=== PATIENT | female | born 2005 | race Caucasian/White ===

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

== ENCOUNTER 2023-06-18 10:32 | Emergency (ER) | payer OTHER, SELFPAY ==
[2023-06-18] VITALS (8 sets, daily range): BP systolic 112–134; BP diastolic 71–84; PULSE 66–103; RESP 16; TEMP 36.7; O2SAT 98–100; BMI 20.5
[2023-06-18 10:43] LABS: Microscopic, Urine URINE MICROSCOPIC (MICROSCOPIC)
--- NOTE | 2023-06-18 11:31 | HMH.EDGENADL ---
Discharge Plan Disposition Patient Disposition: Home, Self-Care Condition: Good Prescriptions Prescriptions: No Action sertraline [Zoloft] 50 mg tablet 50 mg PO DAILY ondansetron 4 mg tablet,disintegrating 4 mg PO Q6H PRN (Reason: nausea and vomiting) 3 Days Qty: 12 0RF medroxyprogesterone 150 mg/mL suspension 150 mg IM DIRECTED levofloxacin 500 MG tablet 500 mg PO DAILY Qty: 7 0RF Referrals Follow up/Referrals: Kory Mercedes MD [Primary Care Provider] - See instructions Activity Restrictions/Add. Instructions Additional Instructions/Restrictions: As discussed, it is likely that you had a ruptured ovarian cyst, given the resolution of your symptoms, the subacute onset of your symptoms, and reassuring imaging. Please return to the emergency department if your pain comes back or worsens, or other concerning signs such as nausea, vomiting,, vaginal bleeding, urinary symptoms. Clinical Impressions Clinical Impression: Intermittent right lower quadrant abdominal pain Instructions Patient Instructions: DI for Acute Abdominal Pain Discharge ED Provider: Chandu Pardo Adult HPI General Chief complaint: Abdominal Pain Stated complaint: Rt side abd pain radiating to back Time Seen by Provider: 06/18/23 10:43 Mode of Arrival: Ambulatory Source of Information: Patient Limitations: No Limitations Description of Symptoms (Recalled from ER Triage Doc. by RN): 17 yo F presents to ED with c/o RLQ pain ongoing for 2-3 days. pt reports last night pain began to radiate into her back on right side. pt does have hx of ovarian cysts but never had proper follow up History of Present Illness HPI narrative: Patient presents for evaluation of gradual in onset right lower quadrant pain, intermittent course, described as dull and nonradiating, with no associated nausea or vomiting or vaginal bleeding or urinary symptoms, describes associated chills however no recorded fevers. Symptoms started approximately 2 to 3 days ago, no sick contacts, no recent travel, no diarrhea or constipation. Of note has had history of ovarian cysts but is unsure if symptoms have been consistent with current presentation. No vaginal discharge or bleeding. No abdominal surgical history. Related Data Home Medications Medication Instructions Recorded Confirmed sertraline 50 mg tablet (Zoloft) 50 mg PO DAILY mood 09/13/19 05/19/21 medroxyprogesterone 150 mg/mL 150 mg IM DIRECTED control 11/13/19 05/19/21 intramuscular suspension Previous Rx's Medication Instructions Recorded ondansetron 4 mg disintegrating 4 mg PO Q6H PRN nausea and 11/26/19 tablet vomiting 3 days #12 tabs levofloxacin 500 mg tablet 500 mg PO DAILY #7 tabs 10/25/21 Allergies Allergy/AdvReac Type Severity Reaction Status Date / Time No Known Allergies Allergy Verified 11/26/19 19:06 [facility] Disclaimer: The information contained in this section may have been updated after the patient was seen, as this information can be updated by other users. Social History Smoking Status: Current every day smoker tobacco type: e-cigarettes alcohol intake: never substance use type: denies use current occupational status: other Travel in the last 8 weeks: None household members: family housing: house ROS Obtained: Yes Systems reviewed as appropriate & no additional complaints except as documented Physical Exam General General appearance: alert and in no apparent distress Head Head exam: atraumatic and normocephalic Eye Eye exam: Present normal appearance Neck Neck exam: Present normal inspection Chest Chest inspection: Present normal inspection and symmetric chest wall rise Respiratory Respiratory exam: Present normal lung sounds bilaterally; Absent respiratory distress Cardiovascular Cardiovascular exam: Present regular rate and normal rhythm Abdominal Exam Abdominal exam: Present soft; Absent guarding or
--- NOTE | 2023-06-18 11:32 | CT_ITS ---
PROCEDURE INFORMATION: Exam: CT Abdomen And Pelvis With Contrast Exam date and time: 06/18/2023 12:01 PM Age: 17 years old Clinical indication: Abdominal pain; Flank; Right lower quadrant (rlq); Additional info: Severe rlq pain TECHNIQUE: Imaging protocol: Computed tomography of the abdomen and pelvis with contrast. Radiation optimization: All CT scans at this facility use at least one of these dose optimization techniques: automated exposure control; mA and/or kV adjustment per patient size (includes targeted exams where dose is matched to clinical indication); or iterative reconstruction. Contrast material: ISOVUE; Contrast volume: 75 ml; Contrast route: IV; REPORTING DATA: Count of CT and Cardiac NM exams in prior 12 months: This patient has received 0 known CTs and 0 known cardiac nuclear medicine studies in the 12 months prior to the current study. COMPARISON: CT ABDOMEN PELVIS W CON 10/24/2021 11:40 PM FINDINGS: Lungs: No acute airspace or pleural disease. Liver: No focal hepatic mass. Gallbladder and bile ducts: Contracted gallbladder. Pancreas: No pancreatic mass. Spleen: No splenomegaly. 1.8 cm accessory spleen. Adrenal glands: Unremarkable adrenals. Kidneys and ureters: Normal renal morphology. No hydronephrosis. Stomach and bowel: Mild small bowel dilatation without a transition zone. Prominent stool. Diverticula, without pericolonic inflammation. Appendix: No acute appendicitis. Intraperitoneal space: No significant free fluid. Vasculature: Normal caliber of the abdominal aorta. Lymph nodes: Subcentimeter lymph nodes. Urinary bladder: Normal bladder morphology. Reproductive: Follicular change in the ovaries. Bones/joints: No acute osseous pathology. Soft tissues: Unremarkable. IMPRESSION: 1. No acute inflammatory process in the abdomen or pelvis. 2. Additional findings as described above.
[2023-06-18 11:37] LABS: Appearance,Urine CLEAR (Clear); Blood, Urine 1+ (Negative); Color,Urine YELLOW (Yellow); Glucose,Urine (UA) Negative (Negative); Ketones,Urine 1+ (Negative); Leukocyte Esterase,Urine Negative (Negative); Nitrate,Urine Negative (Negative); Protein,Urine TRACE (Negative); Specific Gravity, Urine >= 1.030 (1.005-1.030); Urobilinogen,Urine 0.2 EU/dl (0.2)
[2023-06-18 11:38] LABS: HCG Qualitative, Serum Negative (Negative)
[2023-06-18 11:39] LABS: Basophils # 0.1 K/mm3 (0-0.2); Basophils % 0.8 % (0.1-2.0); Eosinophils % 0.6 % (0.1-12.0); Hematocrit 45.4 % (37.0-47.0); Hemoglobin 14.6 g/dL (12.2-16.2); Lymphocytes # 0.5 K/mm3 (0.7-4.5); Lymphocytes % 8.1 % (10-50); Mean Corpuscular HGB Conc 32.1 g/dL (31.8-35.4); Mean Corpuscular Hemoglobin 30.2 pg (27.0-31.2); Mean Corpuscular Volume 94.2 fl (81-99); Mean Platelet Volume 8.4 fl (7.4-10.4); Monocytes # 0.4 K/mm3 (0.1-1.0); Monocytes % 7.9 % (1.7-9.3); Neutrophils # 4.6 K/mm3 (1.8-7.8); Neutrophils % 82.6 % (37.0-80.0); Platelet Count 229 K/mm3 (142-424); Red Blood Count 4.82 M/mm3 (4.20-5.40); Red Cell Distribution Width 13.2 % (11.5-17.5); White Blood Count 5.6 K/mm3 (4.5-13.0)
[2023-06-18 11:40] LABS: Alanine Aminotransferase 18 U/L (12-78); Albumin Level 4.5 g/dl (3.5-5.0); Albumin/Globulin Ratio 1.6 (1.1-1.8); Alkaline Phosphatase 67 U/L (38-126); Amylase 49 U/L (30-110); Anion Gap 13.5 mEq/L (5-15); Aspartate Amino Transferase 26 U/L (14-36); Bilirubin,Total 0.8 mg/dl (0.2-1.3); Blood Urea Nitrogen 7 mg/dl (7-17); Carbon Dioxide 27 mmol/L (22.0-30.0); Chloride 98 mmol/L (98-107); Creatinine Clearance Estimated 97 mL/min (50-200); Estimated Glomerular Filt Rate 92 ml/min (>60); GFR (African American) 112 ML/MIN (>60); Globulin 2.8 g/dL (1.3-3.2); Glucose 113 mg/dl (74-100); Lipase 54 U/L (23-300); Potassium 3.5 mmoL/L (3.5-5.1); Sodium 135 mmol/L (136-145); Total Protein,Serum 7.3 g/dl (6.3-8.2)
[2023-06-18 11:56] LABS: Bilirubin,Urine 1+ (Negative)
[2023-06-18 12:30] LABS: Bacteria,Urine Trace /lpf; Squamous Epithelial Cell,Urine 50-100 #/hpf (0-5)
== END 2023-06-18 14:24 | disposition home or self-care (01) ==
PROVIDERS: Emergency Provider Emergency Medicine; PCP Family Medicine
DX: R10.31 Right lower quadrant pain (principal); R68.83 Chills (without fever); F17.290 Nicotine dependence, other tobacco product, uncomplicated
CPT/HCPCS: 74177; 80053; 81001; 82150; 83690; 84703; 85025; 96361; 96374; 99285; Q9967

== ENCOUNTER 2023-12-22 15:30 | Outpatient (CLI) | payer OTHER, SELFPAY ==
--- NOTE | 2023-12-22 15:35 | US_ITS ---
PROCEDURE: US TRANSVAGINAL CLINICAL INDICATION: Irregular Menses COMPARISON: No exams were available for comparison FINDINGS: Transvaginal sonographic images of the pelvis were obtained. UTERUS: 6.2cm x 4.3cmx 3.3cm retroverted with a combined endometrial thickness of 8.3mm. LEFT OVARY: 3.3cmx2.0cmx1.7cm with a volume of 5.7ml. There are multiple follicles within the left ovary. The largest measures 0.75 cm. It had a polycystic appearance. RIGHT OVARY: 4.2cmx 2.3cmx2.3cm with a volume of 11.8ml. There are several small follicles within the right ovary. There is a corpus luteum measuring 2.2 cm x 1.1 cm x 1.7 cm. There is trace fluid around the right ovary likely indicating recent ovulation. Both ovaries are seen and appear normal. Doppler flow to both ovaries are seen. There is no fluid in the cul-de-sac. IMPRESSION: 1. Retroverted uterus normal in shape and size. The endometrium appears normal. 2. Both ovaries are seen and appear normal. The left ovary has a polycystic appearance. The right ovary has evidence of recent ovulation with trace fluid around the ovary. A corpus luteum is seen. 3. No fluid in the cul-de-sac. Dictated by: Justice Rodriguez MD 12/23/2023 12:43 Justice Rodriguez MD in [facility] 12/23/2023 12:43
== END 2023-12-22 23:59 ==
LOC: RAD 15:31
PROVIDERS: PCP Family Medicine; Visit Provider Obstetrics & Gynecology
DX: N92.6 Irregular menstruation, unspecified (principal)
CPT/HCPCS: 76830

== ENCOUNTER 2024-08-22 02:47 | Emergency (ER) | payer SELFPAY ==
[2024-08-22 02:48] VITALS: BP 150/90; PULSE 75; RESP 18; TEMP 36.7; O2SAT 100; BMI 22.6
--- NOTE | 2024-08-22 02:54 | HMH.EDGENADL ---
Discharge Plan Disposition Patient Disposition: Home, Self-Care Prescriptions Prescriptions: No Action sertraline 25 mg tablet 25 mg PO BID Patient Comments: TAKE 1 TABLET BY MOUTH DAILY FOR 1 WEEK THEN INCREASE TO 2 TABS DAILY Referrals Follow up/Referrals: Provider,MD Reji [Primary Care Provider] - See instructions Activity Restrictions/Add. Instructions Additional Instructions/Restrictions: Please follow-up with your primary care provider. Please return to the emergency department if you develop any new or worsening symptoms or become concerned for your health. Consider MiraLAX as needed to have daily soft stools. Clinical Impressions Clinical Impression: Flu-like symptoms, Abdominal pain Instructions Patient Instructions: DI for Diarrhea and Traveler's Diarrhea -- Adult, DI for Diarrhea and Traveler's Diarrhea -- Child, DI for Nausea -- Adult, DI for Nausea -- Child Print Language Print Language: Yoruba Discharge ED Provider: Artie Choi General Adult HPI General Chief complaint: Nausea/Vomiting/Diarrhea Stated complaint: abd pain, chills, dizziness, body aches Time Seen by Provider: 08/22/24 02:53 History of Present Illness HPI narrative: 19-year-old female with history of anxiety and depression, irregular periods presents for multiple complaints. She reports that she has had cough, congestion, body aches, muscle aches, chills at home for the last several days. She also reports she has been having intermittent left lower quadrant abdominal pain. She reports her last menstrual period was last month. Reports she does not think she is . Reports that her urine is darker and has an odor. Denies dysuria, denies flank pain. Reports he has not been pooping as regularly as normal. Related Data Home Medications ?Medication ?Instructions ?Recorded ?Confirmed sertraline 25 mg tablet 25 mg PO BID 12/12/23 12/12/23 Allergies Allergy/AdvReac Type Severity Reaction Status Date / Time No Known Allergies Allergy Verified 12/12/23 12:57 [facility] Disclaimer: The information contained in this section may have been updated after the patient was seen, as this information can be updated by other users. Medical History (Updated 08/22/24 @ 03:33 by Artie Choi MD) Patient desires Irregular periods/menstrual cycles Ovarian cyst Bipolar 1 disorder, depressed Anxiety and depression Surgical History (Updated 12/12/23 @ 13:05 by JEANE Mcfadden) No significant past surgical history Family History (Updated 12/12/23 @ 13:06 by JEANE Mcfadden) Grandfather Cancer Other Diabetes FHx: mental illness Hypertension Substance abuse Social History (Updated 12/12/23 @ 13:06 by JEANE Mcfadden) Smoking Status: Current every day smoker tobacco type: cigarettes alcohol intake: never substance use type: marijuana current occupational status: unemployed Travel in the last 8 weeks: None household members: family housing: house Other Medical History Have you received the Flu Vaccine for this season: No Have you received the Pneumonia Vaccine: No ROS Obtained: Yes All systems reviewed & no additional complaints except as documented Physical Exam General General appearance: alert and in no apparent distress Head Head exam: atraumatic and normocephalic Eye Eye exam: Present normal appearance, PERRL and EOMI ENT ENT exam: Present normal oropharynx and normal external ear exam Neck Neck exam: Present normal inspection and full ROM Chest Chest inspection: Present normal inspection and symmetric chest wall rise; Absent tenderness Respiratory Respiratory exam: Present normal lung sounds bilaterally; Absent respiratory distress Cardiovascular Cardiovascular exam: Present regular rate and normal rhythm Abdominal Exam Abdominal exam: Present soft and tenderness (Minimal left lower quadrant); Absent distention or guarding Extremities Exam Extremities exam: Present normal inspection; Absent edema or joint swelling Back Exam Back exam: Present normal inspection; Absent tenderness Neurological Exam Neurological exam: Present alert and oriented X3; Absent motor sensory deficit Psychiatric Psychiatric exam: Present normal affect and normal mood Skin Skin exam: Present warm, dry and normal color Lymphatic Lymphatic Findings: no adenopathy Medical Decision Making Medical Records Medical records reviewed: Yes I reviewed the patient's medical records. Screening: Per USPSTF and CDC recommendations, given the prevalence of disease in our region, it is our hospital?s policy to screen for HIV and viral Hepatitis for all patients aged 18 and over and those with ongoing risk factors. Hasmukh Inquiry Pt receiving controlled substance: No Hasmukh was queried for this patient: No Vital Signs: 08/22/24 02:48 Temperature 98.0 F Temperature Source Oral Pulse Rate [Left Radial] 75 Respiratory Rate 18 Blood Pressure [Right Arm] 150/90 H Blood Pressure Mean [Right Arm] 110 Blood Pressure Source [Right Arm] Automatic Cuff Blood Pressure Position [Right Arm] Sitting 02 Sat by Pulse Oximetry 100 Oxygen Delivery Method Room Air Lab Data Lab results reviewed: Yes I reviewed the patient's lab results. Lab Results 08/22/24 02:59: SARS-CoV-2 (PCR) Not detected, Influenza A Untype (PCR) Not detected, Influenza Type B (PCR) Not detected 08/22/24 03:05: Urine Color Yellow, Urine Appearance Clear, Urine pH 6.0, Ur Specific [place] >= 1.030, Urine Protein Negative, Urine Glucose (UA) Negative, Urine Ketones Trace, Urine Blood Negative, Urine Nitrate Negative, Urine Bilirubin Negative, Urine Urobilinogen 1.0, Ur Leukocyte Esterase Negative, Urine RBC None, Urine WBC Occasional, Ur Squamous Epith Cells 3-5, Urine Bacteria Trace, Urine HCG, Qual Negative Orders (Tests/Meds): ORDERS Category Date Time Status Rapid PCR Covid and Flu A/B Stat Lab 08/22/24 02:59 Completed UA [Urinalysis and Microscopic] Stat Lab 08/22/24 03:05 Completed Urine , HCG Qual. Stat Lab 08/22/24 03:05 Completed Medical Decision Narrative: 19-year-old female with history of depression, irregular menstruation presents for multiple complaints, flulike illness as well as intermittent left lower quadrant abdominal pain.. History was obtained via interactive discussion with patient. On arrival, patient is [afebrile, hemodynamically stable, satting appropriately, alert, oriented x4, GCS 15], moving all extremities spontaneously. Full physical exam performed and significant for minimal left lower quadrant tenderness, clear lungs bilaterally. Differential includes but is not limited to COVID, flu, URI, UTI, constipation, , pyelo-, ovarian cyst, ectopic . Workup initiated including urinalysis, urine , COVID flu. On re-evaluation, patient [remains afebrile, HD stable.] Laboratory workup independently interpreted by me and significant for urinalysis not consistent with infection, urine negative. Negative COVID flu Blood work, transvaginal ultrasound was considered, but deemed unnecessary due to history and exam. Given patient history, exam and workup, patient's presentation most likely represents acute viral infection. Patient's left lower quadrant pain does not appear consistent with torsion or other emergent pathology, could be related to constipation. Patient was discharged in stable condition with return precautions and instructions regarding symptomatic care.. Procedures Risk/Benefits of Procedure(s) Were Explained: Yes Critical Care Critical Care Time Critical Care Time: No
[2024-08-22 03:03] LABS: Coronavirus 19, PCR Not Detected (NotDetected); Influenza A, PCR Not Detected (NotDetected); Influenza B, PCR Not Detected (NotDetected)
[2024-08-22 03:09] LABS: Appearance,Urine CLEAR (Clear); Bilirubin,Urine Negative (Negative); Blood, Urine Negative (Negative); Color,Urine YELLOW (Yellow); Glucose,Urine (UA) Negative (Negative); Ketones,Urine TRACE (Negative); Leukocyte Esterase,Urine Negative (Negative); Microscopic, Urine URINE MICROSCOPIC (MICROSCOPIC); Nitrate,Urine Negative (Negative); Protein,Urine Negative (Negative); Specific Gravity, Urine >= 1.030 (1.005-1.030)
[2024-08-22 03:11] LABS: Urine Pregnancy, HCG Qual. Negative (Negative)
[2024-08-22 03:21] LABS: Bacteria,Urine Trace /lpf; WBC,Urine Occasional #/hpf (0-3)
[2024-08-22 03:41] VITALS: BP 150/90; PULSE 75; RESP 18; TEMP 36.7; O2SAT 100
== END 2024-08-22 03:42 | disposition home or self-care (01) ==
PROVIDERS: Emergency Provider Emergency Medicine
DX: R68.89 Other general symptoms and signs (principal); R05.9 Cough, unspecified; R09.81 Nasal congestion; M79.10 Myalgia, unspecified site; R68.83 Chills (without fever); R10.32 Left lower quadrant pain
CPT/HCPCS: 81001; 81025; 87636; 99283

== ENCOUNTER 2025-03-08 17:46 | Emergency (ER) | payer OTHER, SELFPAY ==
--- OUTSIDE RECORDS SUMMARY | 2024-01-20 10:45 | XMS_ITS ---
Author Organization [facility] Address [address] [place] [id number] Care Team Providers Care [employer] Operator Name Role Phone Everette French Primary Care Provider John Worthy Unavailable [phone] Rosaura Hassan Unavailable [phone] Allergies No Known Allergies REASON FOR VISIT Follow Up on Medication Medications Medication SIG (Take, Route, Fr equency, Duration) Notes Start Date End Date Status Sertraline HCl 50 MG 1 tablet Orally Onc e a day for 90 days Active Vraylar 1.5 MG 1 capsule Orally Onc e a day for 90 days Active Vital Signs Blood pressure systolic 118 mm Hg 01/20/20 24 Blood pressure diastolic 74 mm Hg 024 Heart Rate 78 /min 01/20/2024 Height 61 in 01/20/2024 Weight 110.8 lbs 01/20/2024 BMI 20.93 kg/m2 01/20/2024 Encounters Encounter Location Date Provider Diagnosis [facility] [address] [place] [phone] 01/20/2024 Rosaura Hassan Depression with anxi ety F41.8 Assessments Encounter Date Diagnosis (ICD Code) Assessment Notes Treatment Notes Treatment Clinical Notes Section Notes 01/20/2024 Depression with anxiety (ICD-10 - F41.8) Plan Of Treatment Medication Medication Name Sig Start Date Stop Date Notes Sertraline HCl 50 MG 1 tablet Orally Onc e a day for 90 days Vraylar 1.5 MG 1 capsule Orally Onc e a day for 90 days Next Appt Details Follow Up: 6 Months, Reason: Progress Notes * TRENT WILLOUGHBY MDOB:[birth year] (19 yo F)Acc No.[id number]:01/20/2024 Progress Notes Patient: TRENT ROLAND Provider: PORTIA Chau :2005 A ge:18 Y S ex:Female Date:01/20/2024 Phone: Address:[address] [place] [address] [place] [phone] Pcp:Everette French Subjective: * Chief Complaints: * 1 . Follow Up on Medication. * HPI: H PI: 18 year old female presents with c/o Here for follow up on:?medication. pt states no issues at this time and is tolerating well. * ROS: D ERMATOLOGY: no R su. n o H stephanie. G ASTROENTEROLOGY: no N ausea. n o V omiting. U ROLOGY: no D ifficulty urinating. n o B lood in urine. * Medical History: M edical History Verified. * Surgical History: T onsillectomy, Adenoidectomy- [facility] . * Hospitalization/Major Diagno stic Procedure: S ore Throat- [facility] . * Family History: F ather: alive 53 yrs, diagnosed with Mental Illness. M other: alive 44 yrs, diagnosed with Mental Illness. P aternal Grand Father: alive 73 yrs. P aternal Grand Mother: alive 71 yrs, diagnosed with Diabetes. M aternal Grand Father: alive. M aternal Grand Mother: .?Siblings: alive, diagnosed with Cancer. 3 brother(s) , 5 sister(s) - healthy. . * Social History: C URRENT TOBACCO USE: Yes . C affeine: yes, frequency:sometimes. Exercise: no. Home smoke detector use: yes. Marital Status: Single. Occupation: employed, [employer]. Recreational drug use: no. Alcohol: no. Sexually active: yes. Travel ouside [place]: no. Lives with Grandmother who is her guardian. * Medications: T aking Sertraline HCl 50 MG Tablet 1 tablet Orally Once a day , Taking Vraylar 1.5 MG Capsule 1 capsule Orally Once a day , Medication List reviewed and reconciled with the patient * Allergies: N .K.D.A. Objective: * Vitals: W t:110.8, Temp:98.6, BP:118/74, HR:78, Nurse:mh, Ht: 61, BMI:20.93. * Examination: P sychology: General Appearance: N AD. Grooming : a dequate. Eye contact : n ormal. Mood : p leasant. Heart: R SR. Lungs: c lear to auscultation. Neurologic Exam: I ntact, gait normal. ? Assessment: * Assessment: 1. D epression with anxiety - F41.8 (Primary) Plan: * Treatment: * Follow Up: 6 Months * Billing Information: * Visit Code: 69130 Office Visit, Est Pt., Level 3. * Procedure Codes: * Electronic signature of PORTIA Oneal on 03/08/2025 at 06:11 PM EDT Sign off status: Pending * Provider: PORTIA Chau Date: 0 01/20/2024 Generated for Printi ng/Faxing/eTransmitting on: 0 03/08/2025 06:11 PM EDT History and Physical Notes * HPI (History of Present Illness) Category Sub-Category Detail Notes Category Not es HPI Here for follow up on: medicatio n. pt states no issues at this time and is tolerating well Examination Category Sub-Category Detail Notes Category Not es Psychology Heart: RSR Lungs: clear to auscultatio n General Appearance: NAD Neurologic Exam: Intact, gait normal Grooming : adequate Eye contact : normal Mood : pleasant
--- OUTSIDE RECORDS SUMMARY | 2024-04-13 09:40 | XMS_ITS ---
Author Organization [facility] Address [address] [place] [address] [place] [id number] Care Team Providers Care General Merchandise Salesperson Name Role Phone Everette French Primary Care Provider John Worthy Unavailable [phone] Rosaura Hassan Unavailable [phone] Allergies No Known Allergies REASON FOR VISIT Check Up Encounters Encounter Location Date Provider Diagnosis Kavon [address] [place] [address] [place] [id number] 04/13/2024 Rosaura Hassan Plan Of Treatment No Information Progress Notes * TRENT WILLOUGHBY MDOB:[birth year] (19 yo F)Acc No.[id number]:04/13/2024 Progress Notes Patient: TRENT ROLAND Provider: PORTIA Chau :2005 A ge:18 Y S ex:Female Date:04/13/2024 Phone: Address:[address] [place] [address] [id number] Pcp:Everette French Subjective: * Chief Complaints: * 1 . Check Up. * ROS: D ERMATOLOGY: no R su. n o H stephanie. G ASTROENTEROLOGY: no N ausea. n o V omiting. U ROLOGY: no D ifficulty urinating. n o B lood in urine. * Medical History: M edical History Verified. * Surgical History: T onsillectomy, Adenoidectomy- [facility] . * Hospitalization/Major Diagno stic Procedure: S [facility] . * Family History: F ather: alive [...] * Vitals: Assessment: Plan: * Treatment: * Billing Information: * Visit Code: * Procedure Codes: * Electronic signature of PORTIA Oneal on 03/08/2025 at 06:11 PM EDT Sign off status: Pending * Provider: PORTIA Chau Date: 0 04/13/2024 Generated for Keegan rahman/Tanya/Alexandru on: 03/08/2025 06:11 PM EDT
--- OUTSIDE RECORDS SUMMARY | 2024-05-24 11:45 | XMS_ITS ---
Author Organization [facility] Address [address] [place] [id number] Care Team Providers Care Caul Fat Puller Name Role Phone Everette French Primary Care Provider [phone] John Worthy Unavailable [phone] Sonya Rosaura Unavailable [phone] Allergies No Known Allergies Results Component Value [...] Interpretation: Performing Lab: Notes/Report: Test performed by [facility] [address] [place] [address] , [address], [place] [address] Hoang Santana MD, Lapeler CLIA: [id number] Amylase 36 28-100 U/L P-Comprehensive Metabolic Pa joel (CMP) Reviewed date:05/25/2024 09:49:41 AM Interpretation: Performing Lab: Notes/Report: Test performed by [facility] [address] [place] [address] , [address], [place] [address] Hoang Santana MD, Lapeler CLIA: [id number] Sodium 139 135-145 mmol/L Potassium 3.7 3.5-5.3 [...] growth Performing Lab: Notes/Report: Test performed by [facility] [address] [place] [address] , [address], [place] [address] Hoang Santana MD, Lapeler CLIA: [id number] Specimen Source Urine - Void Culture, Urine See Below Final Report : No growth P-Lipase Reviewed date:05/25/2024 09:49:41 AM Interpretation: Performing Lab: Notes/Report: Test performed by [facility] [address] [place] [address] Chrissy [address]ine[address], [address], [place] [address] Hoang Santana MD, Lapeler CLIA: [id number] Lipase 21.3 13.0-60.0 u/L REASON FOR VISIT uti Medications Medication SIG (Take, Route, Fr equency, Duration) Notes Start Date End Date Status Sertraline HCl 50 MG 1 tablet Orally Onc e a day for 90 days Active Vraylar 1.5 MG 1 capsule Orally Onc e a day for 90 days Active levoFLOXacin 500 MG 1 tablet Orally Once a day for 10 day(s) 05/24/2024 Active Vital Signs Blood pressure systolic 126 mm Hg 05/24/20 24 Blood pressure diastolic 70 mm Hg 024 Heart Rate 96 /min 05/24/2024 Height 61 in 05/24/2024 Weight 133.6 lbs 05/24/2024 BMI 25.24 kg/m2 05/24/2024 Encounters Encounter Location Date Provider Diagnosis [facility] [address] [facility] [address] [facility] [address] [place] [id number] 05/24/2024 Rosaura Hassan Hematuria, unspecifi ed type [...] 500 MG 1 tablet Orally Once a day for 10 day(s) 05/24/2024 Pending Test Test Name Order Date Ultrasound : Right Upper Quadrant 2023 Next Appt Details Follow Up: via phone to repo rt test results, Reason: Progress Notes * TRENT WILLOUGHBY MDOB:[birth year] (19 yo F)Acc No.[id number]:05/24/2024 Progress Notes Patient: TRENT ROLAND Provider: PORTIA Chau :2005 A ge:18 Y S ex:Female Date:05/24/2024 Phone: Address:[address] [place] [address] [phone] Pcp:Everette French Subjective: * Chief [...] Verified. * Surgical History: T onsillectomy, Adenoidectomy- [facility] . * Hospitalization/Major Diagno stic Procedure: S ore Throat- [facility] . * Family History: F [...] G eneral Examination: General Appearance: N AD. Chest: n ormal shape and expansion. Heart: R SR. Lungs: c lear to auscultation. Abdomen: bowel sounds present, soft, ttp in the [...] AM > no auth required; CPT code 05949; faxed to scheduling * Procedure Codes: 8 5025 CBC WITH AUTO DIFF, 44049 VENIPUNCT, ROUTINE*, 22430 Urinalysis, no micro * Follow Up: v ia phone to report test results * Billing Information: * Visit Code: 57634 Office Visit, Est Pt., Level 3. * Procedure Codes: 32310 CBC WITH AUTO DIFF. 72412 VENIPUNCT, ROUTINE*. [address]6811 Urinalysis, no micro. * Electronic signature of PORTIA Oneal on 03/08/2025 at 06:11 PM EDT Sign off status: Pending * Provider: PORTIA Chau Date: 0 05/24/2024 Generated for Keegan rahman/Tanya/Alexandru on: 0 03/08/2025 06:11 PM EDT History [...]
--- OUTSIDE RECORDS SUMMARY | 2025-03-08 18:11 | XMS_ITS | Patient Health Record ---
[facility] Address [address] [place] [id number] Care Team Providers Care Cork Insulator Helper Name Role Phone Everette French Primary Care Provider John Worthy Unavailable [phone] JosueRosaura mauricio Unavailable [phone] Allergies No Known Allergies Results Component Value [...] Interpretation: Performing Lab: Notes/Report: Test performed by [email or web address] [employer] [address] [place] [address] , [address], [place] [address] Hoang Santana MD, Cocktail Lounge Manager CLIA: [id number] Amylase 36 28-100 U/L P-Comprehensive Metabolic Pa joel (CMP) Reviewed date:05/25/2024 09:49:41 AM Interpretation: Performing Lab: Notes/Report: Test performed by [facility] [address] [place] [address] , [address], [place] [address] Hoang Santana MD, Cocktail Lounge Manager CLIA: [id number] Sodium 139 135-145 mmol/L Potassium 3.7 3.5-5.3 [...] growth Performing Lab: Notes/Report: Test performed by [facility] [address] [place] [address] , [address], [place] [address] Hoang Santana MD, Cocktail Lounge Manager CLIA: [id number] Specimen Source Urine - Void Culture, Urine See Below Final Report : No growth P-Lipase Reviewed date:05/25/2024 09:49:41 AM Interpretation: Performing Lab: Notes/Report: Test performed by [facility] [address] [place] [address] , [address], [place] [address] Hoang Santana MD, Cocktail Lounge Manager CLIA: [id number] Lipase 21.3 13.0-60.0 u/L Medications Medication SIG (Take, Route, Fr equency, Duration) Notes Start Date End Date Status Sertraline HCl 50 MG 1 tablet Orally Onc e a day for 90 days Active Vraylar 1.5 MG 1 capsule Orally Onc e a day for 90 days Active levoFLOXacin 500 MG 1 tablet Orally Once a day for 10 day(s) 05/24/2024 Active Immunizations Vaccine Route Administration Date Status Comme nts xFluzone High Dose-private (65yr&older) IM Intramuscular 07/17/2013 Administered xFlumist (intranasally age 2yr-49yr)-trivalent IN intranasal 08/12/2009 Administered xFlu shot-36 months and older IM Intramuscular 09/04/2010 Administered Varivax SC Subcutaneous 10/27/2007 Administered Tetanus Tdap-Adacel (over 7yrs) IM Intramuscular 05/06/2015 Administered Tetanus Dtap-Daptacel (under 7yrs) IM Intramuscular 10/27/2007 Administered MMR SC Subcutaneous 11/03/2007 Administered Menactra IM Intramuscular 05/09/2015 Administered Menactra IM Intramuscular 09/05/2020 Administered IPV IM Intramuscular 11/03/2007 Administered Hep A- Pediatric IM Intramuscular 05/06/2015 Administered Hep A- Pediatric IM Intramuscular 11/18/2017 Administered H1N1 flu vaccine IM Intramuscular 08/20/2009 Administered Gardasil 9 IM Intramuscular 05/06/2015 Administered Gardasil 9 IM Intramuscular 07/16/2015 Administered Gardasil 9 IM Intramuscular 11/13/2015 Administered Fluzone Quad (6months&older) IM Intramuscular 09/05/2020 Administered Problems Problem Type SNOMED Code ICD Code Onset Dates Problem Status W/U Status Risk Notes Problem ROUTINE WELL CHI LD EXAMINATION (V20.2) Active confirmed Problem 33788890 Strep pharyngiti s (J02.0) Active confirmed Problem 633578492 Depression with anxiety (F41.8) Active confirmed Problem 53372319 Irregular period s (N92.6) Active confirmed Problem 869580850 Menorrhagia with irregular cycle (N92.1) Active confirmed Problem 84147125 Bronchitis (J40) Active confirmed Problem 70948070 Acute nasopharyngitis (common cold) (J00) Active confirmed Problem 07548543 Non-intractable vomiting with nausea, unspecified vomiting type (R11.2) Active confirmed Problem 20550972 Missed period (N92.6) Active confirmed Problem 655797662 Aortic heart mur mur (I35.8) Active confirmed Problem 26848676 Diarrhea of presumed infectious origin (R19.7) Active confirmed Problem 11253174 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) Active confirmed Vital Signs Heart Rate 96 /min 05/24/2024 Blood pressure diastolic 70 mm Hg 05/24/2024 Height 61 in 05/24/2024 Blood pressure systolic 126 mm Hg 05/24/2024 Weight 133.6 lbs 05/24/2024 BMI 25.24 kg/m2 05/24/2024 Encounters Encounter Location Date Provider Diagnosis Earnest [address] [facility] [address] [place] [id number] 05/24/2024 Rosaura Crowluly Hematuria, unspecifi ed type R31.9 and Right upper quadrant pain R10.11 [facility] [address] [facility] [address] [place] [id number] 05/25/2024 Rosaura Crowdy [facility] [address] [facility] [address] [facility] [address] [place] [id number] 12/11/2024 Everette French Assessments Encounter Date Diagnosis (ICD Code) Assessment Notes Treatment Notes Treatment Clinical Notes Section Notes 05/24/2024 Right upper quadrant pain (ICD-10 - R10.11) 05/24/2024 Hematuria, unspecified type (ICD-10 - R31.9) Plan Of Treatment Pending Test Test Name Order Date Ultrasound : Right Upper Quadrant 2023 ultrasound : thyroid 07/01/2021 Insurance Providers Payer Name Payer Address Payer Phone Subscriber Number Group Number Insured Name Patient Relationship to Insured Coverage Start Date Coverage End Date AETNA [facility] [id number] [place], [place] [id number] TRENT WILLOUGHBY Self - patient is the insured Medications Administered Medication Instructions Date of Administration Dosage Notes Bicillin LA 1,200,000 08/12/2016 2 mL depo provera 11/03/2019 1 mL depo provera 02/05/2020 1 mL depo provera 05/07/2020 1 mL Dexamethasone 08/12/2016 1 mL Medical (General) History Surgical History Surgery Date(Month/Year) Tonsillectomy, Adenoidectomy- [facility] Hospitalization History Reason Date(Month/Year) Sore Throat- [facility]
--- OUTSIDE RECORDS SUMMARY | 2025-03-08 18:11 | XMS_ITS | Clinical Summary ---
Author Organization [facility] Address [address] [place] [address] Care Team Providers Care Hogshead Liner Name Role Phone Quincy Mercedes MD Primary Care Provider [phone] Family History Medical History Relation Name Comments Drug abuse Other 1 Bipolar disorder Other 2 Relation Name Status Comments Other 1 Other 2 Social History Tobacco Use Types Packs/Day Years Used Date Smoking Tobacco: Never Assessed Comments Unknown Sex and Gender Information Value Date Recorded Sex Assigned at Not on file Legal Sex Female 8:22 PM EDT Gender Identity Not on file Sexual Orientation Not on file Last Filed Vital Signs Vital Sign Reading Time Taken Comments Blood Pressure - - Pulse - - Temperature - - Respiratory Rate - - Oxygen Saturation - - Inhaled Oxygen Concentration - - Weight 56.3 kg (124 lb 0.1 oz) 03/03/2016 3:30 P M EDT Height 152.4 cm (5') 03/03/2016 3:30 PM EDT Body Mass Index 24.22 03/03/2016 3:30 PM EDT Plan of Treatment Health Maintenance Due Date Last Done Comments [facility]-Depression Screening 2003 [facility]-Infant/Child/Adol SDOH Screenings 2003 [facility]-IPV Vaccines (2 of 3 - 4-dose series) 12/01/2007 11/03/2007 [facility]-Varicella Vaccines (2 of 2 - 2-dose childhood series) 01/19/2008 10/27/2007 [facility]-Hepatitis A Vaccines (2 of 2 - 2-dose series) 05/18/2018 11/18/2017 HPV Vaccines (1 - 3-dose series) 2018 [facility]- SDOH Screenings 2021 [facility]-Adult SDOH Screenings 2021 [facility]-DTaP,Tdap,and Td Vaccines (1 - Tdap) 2022 [facility]-Hepatitis B Vaccines (1 of 3 - 19+ 3-dose series) 2022 QEX-AILKL-20 Vaccine (1 - 2023- season) 2024 [facility]-Pap Smear 2024 [facility]-Influenza Vaccine (Season Ended) 2025 09/05/2020, 09/01/2007 [facility]-Zoster Vaccines (1 of 2) 2053 10/27/2007 [facility]-HIB Vaccines Aged Out No longer e ligible based on patient's age to complete this topic [facility]-Pneumococcal Vaccine: Pediatrics (0 to 5 Years) and At-Risk Patients (6 to 49 Years) Aged Out No longer eligible b ased on patient's age to complete this topic [facility]-Rotavirus Vaccines Aged Out No lo nger eligible based on patient's age to complete this topic Insurance [employer] MEDICAID [employer] Care Teams Hogshead Liner Relationship Specialty Start Date End Date Quincy Mercedes MD [address] [place] [address] PCP - General 02/13/21
[2025-03-08 18:16] VITALS: BP 138/94; PULSE 106; O2SAT 100
[2025-03-08 18:28] VITALS: BP 138/94; PULSE 100; RESP 19; TEMP 37; O2SAT 100; BMI 25.7
[2025-03-08 18:37] LABS: Microscopic, Urine URINE MICROSCOPIC (MICROSCOPIC)
--- NOTE | 2025-03-08 18:40 | HMH.EDGENADL ---
Discharge Plan Disposition Patient Disposition: Home, Self-Care Prescriptions Prescriptions: No Action sertraline 25 mg tablet 25 mg PO BID Patient Comments: TAKE 1 TABLET BY MOUTH DAILY FOR 1 WEEK THEN INCREASE TO 2 TABS DAILY Referrals Follow up/Referrals: Rosaura Hassan PA [Primary Care Provider, Medical] - See instructions Activity Restrictions/Add. Instructions Additional Instructions/Restrictions: There remains diagnostic uncertainty right now your urinalysis was not consistent with a infection but she did have a small amount of blood in your urine therefore CT scan was ordered to rule out a kidney stone I do not see any on my personal interpretation but the radiologist has not yet read it. Please follow-up later this evening with your CT results given the fact that she wanted to leave before the results were completed. Otherwise you may follow-up with your primary care doctor and return to the emergency department any significant worsening of your symptoms. Clinical Impressions Clinical Impression: Acute right flank pain, Hematuria Instructions Patient Instructions: DI for Acute Abdominal Pain Print Language Print Language: South African Discharge ED Provider: Tom Londono General Adult HPI General Chief complaint: Abdominal Pain Stated complaint: pain in rt side, pain when urinating Time Seen by Provider: 03/08/25 18:23 Mode of Arrival: Ambulatory Source of Information: Patient Description of Symptoms (Recalled from ER Triage Doc. by RN): pt presents to ED with c/o right sided abdominal pain ongoing for 1 week. poision indra ongoing for the past few days. History of Present Illness HPI narrative: 19-year-old presented today with dysuria and intermittent right flank pain for the last few days. No significant anterior abdominal pain. Also states she has had some poison indra but that is not her main complaint today. Denies any hematuria denies any fevers or chills. Related Data Home Medications ?Medication ?Instructions ?Recorded ?Confirmed sertraline 25 mg tablet 25 mg PO BID 12/12/23 12/12/23 Allergies Allergy/AdvReac Type Severity Reaction Status Date / Time No Known Allergies Allergy Verified 12/12/23 12:57 [facility] Disclaimer: The information contained in this section may have been updated after the patient was seen, as this information can be updated by other users. Medical History (Updated 03/08/25 @ 19:32 by Tom Londono MD) Patient desires Irregular periods/menstrual cycles Ovarian cyst Bipolar 1 disorder, depressed Anxiety and depression Surgical History (Updated 12/12/23 @ 13:05 by JEANE Mcfadden) No significant past surgical history Family History (Updated 12/12/23 @ 13:06 by JEANE Mcfadden) Grandfather Cancer Other Diabetes FHx: mental illness Hypertension Substance abuse Social History (Updated 12/12/23 @ 13:06 by JEANE Mcfadden) Smoking Status: Current every day smoker tobacco type: cigarettes alcohol intake: never substance use type: marijuana current occupational status: unemployed Travel in the last 8 weeks?: None household members: family housing: house Have you lived/traveled outside US in past 30 days?: No Contact w/someone who lives/traveled outside US past 30 days?: No Exposure to someone with infectious disease in past 14 days?: No Do you have a fever (greater than 100.4 F or 38 C)?: No Have you tested positive for COVID-19?: No Exposed to someone with COVID-19 in past 14 days?: No Do you have a sore throat?: No Do you have a cough?: No Do you have any weakness?: No Do you have any diarrhea?: No Are you experiencing any unusual bleeding?: No Do you have any muscle aches/pain?: No Do you have any abdominal pain?: No Are you experiencing loss of taste or smell?: No Other Medical History Have you received the Flu Vaccine for this season: No Have you received the Pneumonia Vaccine: No ROS Obtained: Yes All systems reviewed & no additional complaints except as documented Physical Exam General General appearance: alert Respiratory Respiratory exam: Present normal lung sounds bilaterally Cardiovascular Cardiovascular exam: Present regular rate Abdominal Exam Abdominal exam: Present soft; Absent distention or tenderness Back Exam Back exam: Present CVA tenderness (R) Neurological Exam Neurological exam: Present alert and oriented X3 Medical Decision Making Medical Records Screening: Per USPSTF and CDC recommendations, given the prevalence of disease in our region, it is our hospital?s policy to screen for HIV and viral Hepatitis for all patients aged 18 and over and those with ongoing risk factors. Hasmukh Inquiry Pt receiving controlled substance: No Vital Signs: 03/08/25 18:16 03/08/25 18:28 Temperature 98.6 F Temperature Source Oral Pulse Rate 106 H Pulse Rate [Left Radial] 100 H Respiratory Rate 19 Blood Pressure 138/94 H Blood Pressure [Right Arm] 138/94 H Blood Pressure Mean [Right Arm] 108 02 Sat by Pulse Oximetry 100 100 Lab Data Lab results reviewed: Yes I reviewed the patient's lab results. Lab Results 03/08/25 18:15: Urine Color Yellow, Urine Appearance Slightly cloudy, Urine pH 7.5, Ur Specific [place] 1.015, Urine Protein Negative, Urine Glucose (UA) Negative, Urine Ketones Negative, Urine Blood 1+ A, Urine Nitrate Negative, Urine Bilirubin Negative, Urine Urobilinogen 0.2, Ur Leukocyte Esterase Negative, Urine RBC 3-5, Urine WBC 5-10, Ur Squamous Epith Cells 5-10, Amorphous Sediment 3+, Urine Bacteria Trace, Urine HCG, Qual Negative Orders (Tests/Meds): ORDERS Category Date Time Status CT abdomen pelvis wo con Stat Cat Scan 03/08/25 18:57 Taken POCUS Point of Care (ER Only) Stat Exams 03/08/25 18:34 Ordered HIV Combo Stat Lab 03/08/25 18:24 Received Hepatitis C Ab Qual. W/ RFX Stat Lab 03/08/25 18:24 Received UA [Urinalysis and Microscopic] Stat Lab 03/08/25 18:15 Completed Urine , HCG Qual. Stat Lab 03/08/25 18:15 Completed Medical Decision Narrative: 19-year-old with intermittent right flank pain who has CVA tenderness and some dysuria bleeding on the differential would be pyelonephritis. Bedside ultrasound did not demonstrate any hepatobiliary abnormalities nor any obvious hydronephrosis. Will hold off on CT imaging and radiation exposure at this point. Her abdominal exam is benign at the moment. Will get a urinalysis and reassess shortly. Reassessment 733 patient remains very stable urinalysis was performed which did not demonstrate any kidney infection however there was mild hematuria therefore CT scan was ordered to rule out any intra-abdominal pathology namely a kidney stone. On my personal interpretation of this I do not see any obvious kidney stone hydronephrosis or any alternative explanation. Radiology read is pending. Patient states that she wanted to smoke and also could take care of her animals outside and wanted to leave prior to the results being completed. She understands that there is diagnostic uncertainty. There is a significant amount of stool in her ascending colon which could be contributory and I did explain this to her. I advised that she follow-up on her CT results also she may call later this evening and she is understanding of the uncertainty at the moment and still wants to leave prior to results being completed by radiology. Patient was discharged in stable condition serial abdominal exams are benign. Procedures Miscellaneous Procedure Procedure Performed: Limited RUQ ultrasound Indication: Abdominal pain Identified structures: -Gallbladder -Gallbladder wall -Common bile duct -Liver Findings: Negative sonographic Mendez's no evidence of any gallstones or sludge no significant pericholecystic fluid anterior gallbladder wall normal common bile duct visualized and within normal limits Impression: Normal gallbladder and common bile duct Images were saved to permanent archive The study was technically adequate CPT 93155-79 This study was performed by me, and I personally interpreted all images/videos. Based on my clinical judgement, these images were adequate and did not necessitate further imaging. Limited renal ultrasound Indication: A focused ultrasound of the kidneys was performed to evaluate for hydronephrosis and nephrolithiasis. The ultrasound was performed with the following indications, as noted in the H&P: Flank pain Identified structures: Right kidney Findings: Normal no evidence of hydronephrosis or obvious calculi Impression: Unremarkable ultrasound of the right kidney Images were to permanent archive The study was technically adequate CPT: 13461-01 This study was performed by me, and I personally interpreted all images/videos. Based on my clinical judgement, these images were adequate and did not necessitate further imaging. Critical Care Critical Care Time Critical Care Time: No
[2025-03-08 18:45] LABS: Bilirubin,Urine Negative (Negative); Blood, Urine 1+ (Negative); Color,Urine YELLOW (Yellow); Glucose,Urine (UA) Negative (Negative); Ketones,Urine Negative (Negative); Leukocyte Esterase,Urine Negative (Negative); Nitrate,Urine Negative (Negative); PH,Urine 7.5 (5.0-8.5); Protein,Urine Negative (Negative); Specific Gravity, Urine 1.015 (1.005-1.030); Urobilinogen,Urine 0.2 EU/dl (0.2)
[2025-03-08 18:47] LABS: Appearance,Urine Slightly Cloudy (Clear); Urine Pregnancy, HCG Qual. Negative (Negative)
--- NOTE | 2025-03-08 18:57 | CT_ITS ---
PROCEDURE INFORMATION: Exam: CT Abdomen And Pelvis Without Contrast Exam date and time: 03/08/2025 7:07 PM Age: 19 years old Clinical indication: Abdominal pain; Additional info: Right flank pain, hematuria TECHNIQUE: Imaging protocol: Computed tomography of the abdomen and pelvis without contrast. Total images: 280 Radiation optimization: All CT scans at this facility use at least one of these dose optimization techniques: automated exposure control; mA and/or kV adjustment per patient size (includes targeted exams where dose is matched to clinical indication); or iterative reconstruction. COMPARISON: CT ABDOMEN PELVIS W CON 06/18/2023 12:01 PM FINDINGS: Lungs: Lung bases are clear. Heart: Normal heart size. Liver: Normal. No mass. Gallbladder and biliary ducts: Normal. No calcified stones. No ductal dilation. Pancreas: Normal. No ductal dilation. Spleen: Nonenlarged spleen with adjacent splenule is a period Adrenal glands: Bilateral adrenal thickening/hyperplasia. Kidneys and ureters: No hydronephrosis, nephrolithiasis, or perinephric fluid. No discrete renal mass. Partially effacement of the right renal sinus fat. No ureteral stones. Stomach and bowel: Unremarkable stomach and duodenum. No ileus or bowel obstruction. Unremarkable small bowel and terminal ileum. Unremarkable colon and rectum. Appendix: Normal appendix. Intraperitoneal space: Unremarkable. No free air. No significant fluid collection. Vasculature: Nonaneurysmal abdominal aorta. Lymph nodes: Unremarkable. No enlarged lymph nodes. Urinary bladder: Unremarkable as visualized. Reproductive: Physiologic uterus and ovaries. No adnexal mass. Bones/joints: Unremarkable. No acute fracture. Soft tissues: Unremarkable. IMPRESSION: 1. No nephrolithiasis or obstructive uropathy. 2. Subtle partial effacement of the right renal sinus fat, implying edema from recently passed stone or possible infection/pyelonephritis. 3. Normal appendix.
--- NOTE | 2025-03-08 19:04 | PC.NURSE ---
pt to scan via wheelchair
[2025-03-08 19:22] LABS: Amorphous Sediment,Urine 3+ /lpf; Bacteria,Urine Trace /lpf
[2025-03-08 19:35] VITALS: BP 148/101; PULSE 111; RESP 16; TEMP 37; O2SAT 100
[2025-03-08 19:44] LABS: HIV Combo NEGATIVE (Negative)
[2025-03-08 19:52] LABS: Hepatitis C Ab Qual. W/ RFX NEGATIVE (Negative)
== END 2025-03-08 19:37 | disposition home or self-care (01) ==
PROVIDERS: Emergency Provider Student in an Organized Health Care Education/Training Program; PCP Physician Assistant
DX: R10.31 Right lower quadrant pain (principal); R31.9 Hematuria, unspecified; F17.210 Nicotine dependence, cigarettes, uncomplicated
CPT/HCPCS: 74176; 80074; 81001; 81025; 87389; 99284

== ENCOUNTER 2025-04-25 14:20 | Outpatient (CLI) | payer OTHER, SELFPAY ==
--- OUTSIDE RECORDS SUMMARY | 2024-04-13 09:40 | XMS_ITS ---
Author Organization [facility] Address [address] [facility] 36 [facility] [address] [place] [id number] Care Team Providers Care Energy Consultant Name Role Phone Everette French Primary Care Provider John Worthy Unavailable [phone] Rosaura Hassan Unavailable [phone] Allergies No Known Allergies REASON FOR VISIT Check Up Encounters Encounter Location Date Provider Diagnosis [place] [address] [facility] 36 [facility] [address] [place] [id number] 04/13/2024 Rosaura Hassan Plan Of Treatment Next Appt Details Provider Name:Rosaura Simons y, 10/23/2025 02:00:00 PM, [address], [address], [place], [id number], Progress Notes * TRENT WILLOUGHBY MDOB:[birth year] (19 yo F)Acc No.[id number]:04/13/2024 Progress Notes Patient: TRENT ROLAND Provider: PORTIA Chau :2005 A ge:18 Y S ex:Female Date:04/13/2024 Phone: Address:[address] [place] [address] , [id number] Pcp:Everette French Subjective: * Chief Complaints: * 1 . Check Up. * ROS: D ERMATOLOGY: no R su. n o H stephanie. G ASTROENTEROLOGY: no N ausea. n o V omiting. U ROLOGY: no D ifficulty urinating. n o B lood in urine. * Medical History: M edical History Verified. * Surgical History: T onsillectomy, Adenoidectomy- [facility] . * Hospitalization/Major Diagno stic Procedure: S ore Throat- [facility] . * Family History: F ather: [...] with Grandmother who is her guardian. * Allergies: N .K.D.A. Objective: * Vitals: Assessment: Plan: * Treatment: * Images: Billing Information: * Visit Code: * Procedure Codes: * Electronic signature of PORTIA Oneal on 04/25/2025 at 02:25 PM EDT Sign off status: Pending * Provider: PORTIA Chau Date: 04/13/2024 Generated for Keegan rahman/Tanya/Juliannitting on: 04/25/2025 02:25 PM EDT
--- OUTSIDE RECORDS SUMMARY | 2024-05-24 11:45 | XMS_ITS ---
Author Organization [facility] Address [address] [place] [id number] Care Team Providers Care Licensed Occupational Therapist Name Role Phone Everette French Primary Care Provider [phone] John Worthy Unavailable [phone] Josueluly Rosaura Unavailable [phone] Allergies No Known Allergies Results Component Value Reference Range Notes Urinalysis - Inhouse Reviewed date:05/24/2024 04:51:20 PM Interpretation: Performing Lab: Notes/Report: Color/Clarity yellow/clear Leuk Neg Nitrite Neg Urobili 16 Protein Neg pH 6.0 Blood 2+ Sp. Gr. >1.030 Ketone Trace Bili 1+ Gluc Neg CBC Venipuncture (in house) Reviewed date:05/25/2024 09:26:34 AM Interpretation: Performing Lab: Notes/Report: wbc 8.2 3.5 - 10 lymph 16.3% 15 - 50 mid 4.8% 2 - 15 gran 78.9% 35 - 80 rbc 4.61 3.5 - 5.5 hgb 14.3 11.5 - 16.5 hct 42.8 35 - 55 mcv 92.7 75 - 100 mch 30.9 25 - 35 mchc 33.4 31 - 38 platlet 236 100 - 400 P-Amylase Reviewed date:05/25/2024 09:49:40 AM Interpretation: Performing Lab: Notes/Report: Test performed by [facility] [address] [place] [address] , [address], [place] [address] Hoang Santana MD, Back Up Worker CLIA: [id number] Amylase 36 28-100 U/L P-Comprehensive Metabolic Pa joel (CMP) Reviewed date:05/25/2024 09:49:41 AM Interpretation: Performing Lab: Notes/Report: Test performed by [facility] [address] [place] [address] , [address], [place] [address] Hoang Santana MD, Back Up Worker CLIA: [id number] Sodium 139 135-145 mmol/L Potassium 3.7 3.5-5.3 mmol/L Chloride 103 97-108 mmol/L CO2 24 22-32 mmol/L Glucose 96 65-99 mg/dL BUN 8 6-20 mg/dL Creatinine 0.71 0.50-1.00 mg/dL Calcium 9.0 8.6-10.4 mg/dL eGFR by Creatinine 124 >59 mL/min/1.73m2 Protein 6.2 6.0-8.3 g/dL Albumin 4.1 3.5-5.3 g/dL Alkaline Phosphatase 87 35-121 IU/L ALT (SGPT) 14 <5-47 IU/L AST (SGOT) 16 <5-40 IU/L Bilirubin, Total 0.3 <0.2-1.2 mg/dL A/G Ratio 2.0 1.1-2.5 P-Culture, Urine Reviewed date:05/28/2024 09:56:24 AM Interpretation:No growth Performing Lab: Notes/Report: Test performed by [facility] [address] [place] [address] , [address], [place] [address] Hoang Santana MD, Back Up Worker CLIA: [id number] Specimen Source Urine - Void Culture, Urine See Below Final Report : No growth P-Lipase Reviewed date:05/25/2024 09:49:41 AM Interpretation: Performing Lab: Notes/Report: Test performed by [facility] [address] [place] [address] Chrissy Tineo, [address], [place] [address] Hoang Santana MD, Back Up Worker CLIA: [id number] Lipase 21.3 13.0-60.0 u/L REASON FOR VISIT uti Medications Medication SIG (Take, Route, Fr equency, Duration) Notes Start Date End Date Status Sertraline HCl 50 MG 1 tablet Orally Onc e a day; Duration: 90 days Active Vraylar 1.5 MG 1 capsule Orally Onc e a day; Duration: 90 days Active levoFLOXacin 500 MG 1 tablet Orally Once a day; Duration: 10 day(s) 05/24/2024 Active Vital Signs Weight 133.6 lbs 05/24/2024 Blood pressure systolic 126 mm Hg 05/24/20 24 Blood pressure diastolic 70 mm Hg 024 Heart Rate 96 /min 05/24/2024 Height 61 in 05/24/2024 BMI 25.24 kg/m2 05/24/2024 Encounters Encounter Location Date Provider Diagnosis [facility] [address] [place] [phone] 05/24/2024 Rosaura Hassan Hematuria, unspecifi ed type R31.9 and Right upper quadrant pain R10.11 Assessments Encounter Date Diagnosis (ICD Code) Assessment Notes Treatment Notes Treatment Clinical Notes Section Notes 05/24/2024 Hematuria, unspecified type (ICD-10 - R31.9) 05/24/2024 Right upper quadrant pain (ICD-10 - R10.11) Plan Of Treatment Medication Medication Name Sig Start Date Stop Date Notes levoFLOXacin 500 MG 1 tablet Orally Once a day; Duration: 10 day(s) 05/24/2024 Pending Test Test Name Order Date Ultrasound : Right Upper Quadrant 2023 Next Appt Details Follow Up: via phone to repo rt test results, Reason: Provider Name:Rosaura Arthur Josuelis y, 10/23/2025 02:00:00 PM, [address], [address], [place], [phone], Progress Notes * TRENT WILLOUGHBY MDOB:[birth year] (19 yo F)Acc No.[id number]:05/24/2024 Progress Notes Patient: TRENT ROLAND Provider: PORTIA Chau :2005 A ge:18 Y S ex:Female Date:05/24/2024 Phone: Address:[address] , [phone] Pcp:Everette French Subjective: * Chief Complaints: * 1 . uti . * HPI: U rology: The pt is here today with c/o urinary frequency and burning. Pt states she is also having RUQ abdominal pain since last night. Pt rates the pain 6/10 on the pain scale. 18 year old female presents with c/o frequent urination. c/o burning sensation. * ROS: C ARDIOLOGY: no C hest pain. n o S hortness of breath. ? D ERMATOLOGY: no R su. n o H stephanie. G ASTROENTEROLOGY: no N ausea. n o V omiting. n o D iarrhea.? * Medical History: M edical History Verified. * Surgical History: T onsillectomy, Adenoidectomy- [facility] . * Hospitalization/Major Diagno stic Procedure: S ore Throat- [facility] . * Family History: F [...] Allergies: N .K.D.A. Objective: * Vitals: W t:133.6, Temp:97.9, BP:126/70, HR:96, Nurse:SARAH, Ht: 61, BMI:25.24. * Examination: G eneral Examination: General Appearance: N AD. C hest: n ormal shape and expansion. H eart: R SR. L ungs: c lear to auscultation. A bdomen: bowel sounds present, soft, ttp in the RUQ with some guarding. Assessment: * Assessment: 1. H ematuria, unspecified type - R31.9 (Primary) 2 . R ight upper quadrant pain - R10.11 Plan: * Treatment: Value Reference Range C ulture, Urine See Below - * S pecimen Source Urine - Void - * Michelle Salinas 05/28/2024 9:56 :15 AM > pt informed of results ?LAB: Urinalysis - Inhouse (Collection Date & Time - 05/24/2024)* Value Reference Range C olor/Clarity yellow/clear * L euk Neg * N itrite Neg * U robili 16 * P rotein Neg * p H 6.0 * B lood 2+ * S p. Gr. >1.030 * K etone Trace * B sally 1+ * G clark Neg * Leah Poe 05/24/2024 4:0 3:07 PM > , Provider reviewed results while patient in office.Rosaura Hassan 05/24/2024 4:51:14 PM > 2.?Right upper quadrant pain? Start levoFLOXacin Tablet, 500 MG, 1 tablet, Orally, Once a day, 10 day(s), 10 Tablet, Refills 0. ?LAB: P-Amylase (Collection Date & Time - 05/24/2024 03:07 PM)* Value Reference Range A mylase 36 28-100 - U/L * Rosaura Hassan 05/25/2024 9: 49:36 AM > see TE ?LAB: P-Comprehensive Metabolic Panel (CMP) (Collection Date & Time - 05/24/2024 03:07 PM)* Value Reference Range A /G Ratio 2.0 1.1-2.5 - * A lbumin 4.1 3.5-5.3 - g/dL * A lkaline Phosphatase 87 35-121 - IU/L * A LT (SGPT) 14 <5-47 - IU/L * A ST (SGOT) 16 <5-40 - IU/L * B ilirubin, Total 0.3 <0.2-1.2 - mg/dL * B UN 8 6-20 - mg/dL * C alcium 9.0 8.6-10.4 - mg/dL * C hloride 103 97-108 - mmol/L * C O2 24 22-32 - mmol/L * C reatinine 0.71 0.50-1.00 - mg/dL * G lucose 96 65-99 - mg/dL * P otassium 3.7 3.5-5.3 - mmol/L * S odium 139 135-145 - mmol/L * P rotein 6.2 6.0-8.3 - g/dL * e GFR by Creatinine 124 >59 - mL/min/1.73m2 * Rosaura Hassan 05/25/2024 9: 49:36 AM > see TE ?LAB: P-Lipase (Collection Date & Time - 05/24/2024 03:07 PM)* Value Reference Range L ipase 21.3 13.0-60.0 - u/L * Rosaura Hassan 05/25/2024 9: 49:36 AM > see TE ?LAB: CBC Venipuncture (in house) (Collection Date & Time - 05/24/2024)* Value Reference Range w bc 8.2 3.5 - 10 * l ymph 16.3% 15 - 50 * m id 4.8% 2 - 15 * g ran 78.9% 35 - 80 * r bc 4.61 3.5 - 5.5 * h gb 14.3 11.5 - 16.5 * h ct 42.8 35 - 55 * m cv 92.7 75 - 100 * m ch 30.9 25 - 35 * m chc 33.4 31 - 38 * p latlet 236 100 - 400 * Leah Poe 05/24/2024 4:5 8:39 PM > , Provider reviewed results while patient in office.Rosaura Hassan 05/25/2024 9:26:31 AM > ?Imaging: Ultrasound : Right Upper Quadrant* Rosaura Hassan 05/24/2024 3: 54:37 PM > Needs RUQ U/S Marilynn Joy 05/25/2024 8:39:20 AM > no auth required; CPT code 66147; faxed to scheduling * Procedure Codes: 8 5025 CBC WITH AUTO DIFF, 70278 VENIPUNCT, ROUTINE*, 95737 Urinalysis, no micro * Follow Up: v ia phone to report test results * Images: Billing Information: * Visit Code: 56223 Office Visit, Est Pt., Level 3. * Procedure Codes: 77535 CBC WITH AUTO DIFF. 52488 VENIPUNCT, ROUTINE*. 47260 Urinalysis, no micro. * Electronic signature of PORTIA Oneal on 04/25/2025 at 02:24 PM EDT Sign off status: Pending * Provider: PORTIA Chau Date: 05/24/2024 Generated for Keegan rahman/Tanya/eTransmitting on: 04/25/2025 02:24 PM EDT History and Physical Notes * HPI (History of Present Illness) Category Sub-Category Detail Notes Category Not es Urology frequent urination burning sensation Examination Category Sub-Category Detail Notes Category Not es General Examination Heart: RSR Lungs: clear to auscultatio n Abdomen: bowel sounds present , soft, ttp in the RUQ with some guarding General Appearance: NAD Chest: normal shape and exp ansion
--- OUTSIDE RECORDS SUMMARY | 2025-04-18 09:30 | XMS_ITS ---
Author Organization [facility] Address [address] [place] [id number] Care Team Providers Care Fire Lieutenant Marine Name Role Phone Everette French Primary Care Provider [phone] John Worthy Unavailable [phone] Rosaura Hassan Unavailable [phone] Allergies No Known Allergies REASON FOR VISIT med check Medications Medication SIG (Take, Route, Fr equency, Duration) Notes Start Date End Date Status Vraylar 1.5 MG 1 capsule Orally Onc e a day; Duration: 90 days Active Sertraline HCl 50 MG 1 tablet Orally Onc e a day; Duration: 90 days Active Vital Signs Weight 130.4 lbs 04/18/2025 Blood pressure systolic 120 mm Hg 04/18/20 25 Blood pressure diastolic 72 mm Hg 025 Heart Rate 84 /min 04/18/2025 Height 61 in 04/18/2025 BMI 24.64 kg/m2 04/18/2025 Encounters Encounter Location Date Provider Diagnosis Earn[facility] [address] [place] [id number] 04/18/2025 Rosaura Hassan Depression with anxi ety F41.8 and Heart murmur R01.1 Assessments Encounter Date Diagnosis (ICD Code) Assessment Notes Treatment Notes Treatment Clinical Notes Section Notes 04/18/2025 Depression with anxiety (ICD-10 - F41.8) 04/18/2025 Heart murmur (ICD-10 - R01.1) Plan Of Treatment Medication Medication Name Sig Start Date Stop Date Notes Vraylar 1.5 MG 1 capsule Orally Onc e a day; Duration: 90 days Sertraline HCl 50 MG 1 tablet Orally Onc e a day; Duration: 90 days Pending Test Test Name Order Date Echocardiogram 04/18/2025 Next Appt Details Follow Up: 6 Months, Reason: Provider Name:Rosaura Simons y, 10/23/2025 02:00:00 PM, [address], [place], [phone], Progress Notes * TRENT WILLOUGHBY MDOB:[birth year] (19 yo F)Acc No.[id number]:04/18/2025 Progress Notes Patient: TRENT ROLAND Provider: PORTIA Chau :2005 A ge:19 Y S ex:Female Date:04/18/2025 Phone: Address[address] [address] [id number] Pcp:Everette French Subjective: * Chief Complaints: * 1 . Med check. * HPI: P sychology: The pt is here today for a check-up on Depression. Pt states she would like to discuss her medications. Pt has no other concerns today but has been off of her medications and needs to restart them. * ROS: D ERMATOLOGY: no R su. n o H stephanie. G ASTROENTEROLOGY: no N ausea. n o V omiting. n o D iarrhea.? U ROLOGY: no D ifficulty urinating. n o B lood in urine. * Medical History: M edical History Verified. * Surgical History: T onsillectomy, Adenoidectomy- [facility] . * Hospitalization/Major Diagno stic Procedure: S ore Throat- [facility] . * Family History: F ather: alive 54 yrs, diagnosed with Mental Illness. M other: alive 45 yrs, diagnosed with Mental Illness. P aternal Grand Father: alive 73 yrs. P aternal Grand Mother: alive 72 yrs, diagnosed with Diabetes. M aternal Grand [...] Grandmother who is her guardian. * Medications: N ot-Taking Sertraline HCl 50 MG Tablet 1 tablet Orally Once a day , Not-Taking Vraylar 1.5 MG Capsule 1 capsule Orally Once a day , Discontinued levoFLOXacin 500 MG Tablet 1 tablet Orally Once a day , Medication List reviewed and reconciled with the patient * Allergies: N .K.D.A. Objective: * Vitals: W t: 130.4, Temp: 97.8, BP: 120/72, HR: 84, Nurse: erika, Ht: 61, BMI:24.64. * Examination: P sychology: General Appearance: N AD. G rooming : a dequate.?Eye contact : n ormal. M ood : p leasant. H eart: R SR, 2/6 systolic murmur.?Lungs: c lear to auscultation. N eurologic Exam: I ntact, gait normal. ? Assessment: * Assessment: 1. D epression with anxiety - F41.8 (Primary) 2 . H eart murmur - R01.1? Plan: * Treatment: 2. H eart murmur I maging: Echocardiogram * Follow Up: 6 Months * Images: Billing Information: * Visit Code: 32506 Office Visit, Est Pt., Level 3. * Procedure Codes: * Electronic signature of PORTIA Oneal on 04/25/2025 at 02:24 PM EDT Sign off status: Pending * Provider: PORTIA Chau Date: 04/18/2025 Generated for Keegan rahman/Tanya/eTransmitting on: 04/25/2025 02:24 PM EDT History and Physical Notes * Examination Category Sub-Category Detail Notes Category Not es Psychology Heart: RSR, 2/6 systolic murmur Lungs: clear to auscultatio n General Appearance: NAD Neurologic Exam: Intact, gait normal Grooming : adequate Eye contact : normal Mood : pleasant
--- NOTE | 2025-04-25 | CA_ITS ---
APPROVED REPORT EXAM: Comprehensive 2D, Doppler, and color-flow Echocardiogram Mechanical Assembly: Tammy Mantilla RVT Ht: 5 ft 1 in Wt: 112lbs BSA: 1.48 BP: 108/64 mmHg Indications: MURMUR 2D Dimensions LA Volume 22.30 mL LA Volume Index 15.07 mL/m2 (M/F) 16-34 M-Mode Dimensions RVDd 2.21 cm (0.9-2.6) LA Diam 2.77 cm (1.9-4.0) LVDd 4.15 cm (3.5-5.7) LVDs 2.70 cm (3.5-5.7) IVSd 0.93 cm (0.6-1.1) PWd 0.38 cm (0.6-1.1) EF (Teich) 64.70% FS 34.90% EDV (Teich) 76.40 mL TAPSE 1.88 (<1.7) ESV (Teich) 27.00 mL LV Diastology E Decel Time 180 (160-240 msec) E/A Ratio 1.5 Aortic Valve EDILSON Index 1.47 cm2/m2 AoV Peak Javi. 147.0 (50-130 cm/s) AO Peak GR. 8.70 mmHg AO Mean GR. 4.60 (<5 mmHg) AO VTI 26.4 (18-25 cm) EDILSON (VTI) 2.22 (2.5-4.5 cm2) Mitral Valve MV E Max Javi. 84.0 (40-130 cm/s) MV A Velocity 57.0 (40-130 cm/s) E/A Ratio 1.47 MV PHT 53.0 ms Pulmonary Valve PV Peak Velocity 72.0 (50-150 cm/s) Left Ventricle The left ventricle is normal size. The left ventricular systolic function is normal. The left ventricular ejection fraction is within the normal range. There is normal left ventricular wall thickness. There is normal LV segmental wall motion. The left ventricular diastolic function is normal. LVEF is 55%. Right Ventricle The right ventricle is normal size. The right ventricular systolic function is normal. Atria The left atrium size is normal. The right atrium size is normal. There is no Doppler evidence of interatrial shunt. Aortic Valve The aortic valve is mildly thickened. There is no aortic valvular stenosis. Trace aortic regurgitation. Mitral Valve The mitral valve is normal in structure. No evidence of mitral valve stenosis. Trace mitral regurgitation. Tricuspid Valve Tricuspid valve is grossly normal in structure and function. Trace tricuspid regurgitation. There is insufficient TR jet to estimate RVSP. Pulmonic Valve The pulmonary valve is normal in structure. Trace pulmonic regurgitation. Great Vessels The aortic root is normal in size. IVC is normal in size and collapses >50% with inspiration. Pericardium There is no pericardial effusion. Other Information Study Quality: Fair Conclusion Normal biventricular systolic function. No significant valvular stenosis or regurgitation. Electronically signed by : Sara Santa MD 04/30/2025 08:41:03
--- OUTSIDE RECORDS SUMMARY | 2025-04-25 14:24 | XMS_ITS | Patient Health Record ---
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 Role Phone Manolo Everette Primary Care Provider John Worthy Unavailable [phone] Josueluly Rosaura Unavailable [phone] Allergies No Known Allergies Results Component Value Reference Range Notes P-Lipase Reviewed date:05/25/2024 09:49:41 AM Interpretation: Performing Lab: Notes/Report: Test performed by [facility] [address] [place], [place] [address] , [address], [place] [address] Hoang Santana MD, Weapons System Instrument Mechanic CLIA: [id number] Lipase 21.3 13.0-60.0 u/L P-Culture, Urine Reviewed date:05/28/2024 09:56:24 AM Interpretation:No growth Performing Lab: Notes/Report: Test performed by [facility] [address] [place] [address] , [address], [place] [address] Hoang Santana MD, Weapons System Instrument Mechanic CLIA: [id number] Specimen Source Urine - Void Culture, Urine See Below Final Report : No growth P-Comprehensive Metabolic Pa joel (CMP) Reviewed date:05/25/2024 09:49:41 AM Interpretation: Performing Lab: Notes/Report: Test performed by [facility] [address] [place] [address] , [address], [place] [address] Hoang Santana MD, Weapons System Instrument Mechanic CLIA: [id number] Sodium 139 135-145 mmol/L Potassium 3.7 3.5-5.3 [...] 0.3 <0.2-1.2 mg/dL A/G Ratio 2.0 1.1-2.5 P-Amylase Reviewed date:05/25/2024 09:49:40 AM Interpretation: Performing Lab: Notes/Report: Test performed by [facility] [address] [place] [address] , [address] , [place] [address] Hoang Santana MD, Weapons System Instrument Mechanic CLIA: [id number] Amylase 36 28-100 U/L CBC Venipuncture (in house) Reviewed date:05/25/2024 09:26:34 [...] - 38 platlet 236 100 - 400 Urinalysis - Inhouse Reviewed date:05/24/2024 04:51:20 PM Interpretation: Performing Lab: Notes/Report: Color/Clarity yellow/clear Leuk Neg Nitrite Neg Urobili 16 Protein Neg pH 6.0 Blood 2+ Sp. Gr. >1.030 Ketone Trace Bili 1+ Gluc Neg Medications Medication SIG (Take, Route, Frequency, Duration) Notes Start Date End Date Status Vraylar 1.5 MG 1 capsule Orally Onc e a day; Duration: 90 days Active Sertraline HCl 50 MG 1 tablet Orally Onc e a day; Duration: 90 days Active Loestrin Fe 10/22 1-20 MG-MCG 1 tablet Orally Once a day; Duration: 28 days 04/24/2025 Active Immunizations Vaccine Route Administration Date Status Comme nts Fluzone Quad (6months&older) IM Intramuscular 09/05/2020 Administered Gardasil 9 IM Intramuscular 05/06/2015 Administered Gardasil 9 IM Intramuscular 07/16/2015 Administered Gardasil 9 IM Intramuscular 11/13/2015 Administered H1N1 flu vaccine IM Intramuscular 08/20/2009 Administered Hep A- Pediatric IM Intramuscular 05/06/2015 Administered Hep A- Pediatric IM Intramuscular 11/18/2017 Administered IPV IM Intramuscular 11/03/2007 Administered Menactra IM Intramuscular 05/09/2015 Administered Menactra IM Intramuscular 09/05/2020 Administered MMR SC Subcutaneous 11/03/2007 Administered Tetanus Dtap-Daptacel (under 7yrs) IM Intramuscular 10/27/2007 Administered Tetanus Tdap-Adacel (over 7yrs) IM Intramuscular 05/06/2015 Administered Varivax SC Subcutaneous 10/27/2007 Administered xFlu shot-36 months and older IM Intramuscular 09/04/2010 Administered xFlumist (intranasally age 2yr-49yr)-trivalent IN intranasal 08/12/2009 Administered xFluzone High Dose-private (65yr&older) IM Intramuscular 07/17/2013 Administered Problems Problem Type SNOMED Code ICD Code Onset Dates Problem Status W/U Status Risk Notes Problem Well child visit (915281066) ROUTINE WELL CHILD EXAMINATION (V20.2) Active confirmed Problem Streptococcal sore throat (disorder) (40504145) Strep pharyngitis (J02.0) Active confirmed Problem Mixed anxiety and depressive disorder (014437854) Depression with anxiety (F41.8) Active confirmed Problem Irregular periods (73479001) Irregular periods (N92.6) Active confirmed Problem Intermenstrual bleeding - irregular (38254372) Menorrhagia with irregular cycle (N92.1) Active confirmed Problem Bronchitis (15866997) Bronchitis (J40) Active confirmed Problem Common cold (15082455) Acute nasopharyngitis (common cold) (J00) Active confirmed Problem Nausea and vomiting (20906398) Non-intractable vomiting with nausea, unspecified vomiting type (R11.2) Active confirmed Problem Missed period (51197780) Missed period (N92.6) Active confirmed Problem Aortic valve disorder (4357981) Aortic heart murmur (I35.8) Active confirmed Problem Diarrhea of presumed infectious origin (48537015) Diarrhea of presumed infectious origin (R19.7) Active confirmed Problem Mild major depression (05249963) 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) Active confirmed Vital Signs Heart Rate 84 /min 04/18/2025 Blood pressure diastolic 72 mm Hg 04/18/2025 Height 61 in 04/18/2025 Blood pressure systolic 120 mm Hg 04/18/2025 Weight 130.4 lbs 04/18/2025 BMI 24.64 kg/m2 04/18/2025 Encounters Encounter Location Date Provider Diagnosis [facility] [address] [place], [place] [id number] 05/24/2024 Rosaura Crowdy Hematuria, unspecifi ed type R31.9 and Right upper quadrant pain R10.11 [facility] [address] [place], [place] [id number] 04/18/2025 Rosaura Sonya Depression with anxi ety F41.8 and Heart murmur R01.1 [facility] [address] [place], [place] [id number] 05/25/2024 Rosaura Crowdy [facility] [address] [place] [id number] 12/11/2024 Everette Marion [facility] [address] [place], [place] [id number] 04/18/2025 Everette Marion [facility] [address] [place], [place] [id number] 04/22/2025 Rosaura Crowluly Assessments Encounter Date Diagnosis (ICD Code) Assessment Notes Treatment Notes Treatment Clinical Notes Section Notes 05/24/2024 Right upper quadrant pain (ICD-10 - R10.11) 05/24/2024 Hematuria, unspecified type (ICD-10 - R31.9) 04/18/2025 Depression with anxiety (ICD-10 - F41.8) 04/18/2025 Heart murmur (ICD-10 - R01.1) Plan Of Treatment Pending Test Test Name Order Date Ultrasound : Right Upper Quadrant 2023 Echocardiogram 04/18/2025 Next Appt Details Provider Name:Rosaura lo, 10/23/2025 02:00:00 PM, [address], [address], [place], [id number], Insurance Providers Payer Name Payer Address Payer Phone Subscriber Number Group Number Insured Name Patient Relationship to Insured Coverage Start Date Coverage End Date [employer] [facility] [address] [place], [place] [id number] TRENT WILLOUGHBY Self - patient is the insured Medications Administered Medication Instructions Date of Administration Dosage Notes Bicillin LA 1,200,000 08/12/2016 2 mL depo provera 11/03/2019 1 mL depo provera 02/05/2020 1 mL depo provera 05/07/2020 1 mL Dexamethasone 08/12/2016 1 mL Medical (General) History Surgical History Surgery Date(Month/Year) Tonsillectomy, Adenoidectomy- [facility] Hospitalization History Reason Date(Month/Year) Sore Throat- [facility]
--- OUTSIDE RECORDS SUMMARY | 2025-04-25 14:24 | XMS_ITS | Clinical Summary ---
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 Name Role Phone Quincy Mercedes MD Primary Care Provider Family History Medical History Relation Name Comments [...] Date Last Done Comments [facility]-Depression Screening 2003 [facility]-/Child/Adol SDOH Screenings 2003 [facility]-IPV Vaccines (2 of [...] of 3 - 19+ 3-dose series) 2022 [facility]-QAVID-68 Vaccine (1 - 2023- season) 2024 [facility]-Pap Smear 2024 [facility]-Influenza Vaccine (#1) 06/03/202509/05, 09/01/2007 [facility]-Zoster Vaccines (1 of 2) 2053 [...] MEDICAID [employer] Care Teams Automotive Parts Counter Person Relationship Specialty Start Date End Date Quincy Mercedes MD [address] [place] [address] PCP - General 02/13/21
== END 2025-04-25 23:59 | disposition home or self-care (01) ==
LOC: RT 14:21
PROVIDERS: PCP Physician Assistant; Visit Provider Physician Assistant
DX: R01.1 Cardiac murmur, unspecified (principal)
CPT/HCPCS: 93306